=== PATIENT | male | born 1960 | race Caucasian/White ===

== ENCOUNTER 2017-06-26 06:46 | Inpatient (IN) | payer OTHER ==
[2017-06-20 13:37] LABS: BASOPHILS % (AUTO) 0.5 % (0.0-2.0); EOSINOPHILS % (AUTO) 5.3 % (1.0-6.0); HEMOGLOBIN 15.7 g/dL (13.5-17.5); LYMPHOCYTES # (AUTO) 1.7 K/uL (1.0-4.8); LYMPHOCYTES % (AUTO) 21.7 % (22.0-44.0); MEAN CORPUSCULAR HEMOGLOBIN 29.5 pg (26.0-34.0); MEAN CORPUSCULAR HGB CONC 34.1 G/dL (31.0-37.0); MEAN CORPUSCULAR VOLUME 86 fL (80-100); MONOCYTES # (AUTO) 0.8 K/uL (0.1-1.0); MONOCYTES % (AUTO) 10.5 % (2.0-9.0); NEUTROPHILS # (AUTO) 4.8 K/uL (1.8-7.7); PLATELET COUNT (AUTO) 273 K/uL (150-450); RED BLOOD CELL COUNT(AUTO) 5.32 MIL/uL (4.50-5.90); RED CELL DISTRIBUTION WIDTH 14.5 % (11.5-14.5); WHITE BLOOD COUNT (AUTO) 7.7 K/uL (4.5-11.0)
[2017-06-20 13:41] LABS: ANION GAP 10 mmol/L (8-16); CARBON DIOXIDE 27 mmol/L (22-29); CHLORIDE 105 mmol/L (98-107); CREATININE 1.19 mg/dL (0.60-1.30); GLOMERULAR FILTR. RATE CALC > 60 mL/min (>60); POTASSIUM 4.5 mmol/L (3.5-5.1); SODIUM SERUM 142 mmol/L (136-145); UREA NITROGEN, BLOOD 13 mg/dL (7-18)
[2017-06-20 13:48] LABS: ALANINE AMINOTRANSFERASE 45 U/L (12-78); ALBUMIN 3.5 g/dL (3.4-5.0); ASPARTATE AMINOTRANSFERASE 16 U/L (15-37); BILIRUBIN,TOTAL 0.4 mg/dL (0.1-1.0); TOTAL PROTEIN, SERUM 6.9 g/dL (6.4-8.2)
[~2017-06-26 06:46] MED LIST: AMLO-512 PO; ATOR40TA28 PO; CHOL4PAC8 PO; CeFAZolin 2 GM/DEXTROSE 50 ML IV ONE; FISH1CAP27 PO; HYDR-309 PO; LORA1TAB3 PO; MELO-273 PO; OMEP20 PO; RINGERS SOLUTION,LACTATED 1,000 ML IV ONE
[2017-06-26] MEDS ORDERED: RINGERS SOLUTION,LACTATED 1,000 ML IV ONE (07:07)
[2017-06-26] MEDS ORDERED: CeFAZolin 2 GM/DEXTROSE 50 ML IV ONE (07:38)
[2017-06-26] MEDS ORDERED: KETAMINE HCL 50 MG/ML 10 ML VIAL ONE (10:17)
[2017-06-26] MEDS ORDERED: PROPOFOL 1000 MG/ISO-OSM 100 ML IV ONE (10:17)
[2017-06-26] MEDS ORDERED: MINERAL OIL/PETROLATUM,WHITE PF 3.5 GM OPHTHALMIC OINTMENT ONE (10:19)
[2017-06-26] MEDS ORDERED: GLYCOPYRROLATE 0.2 MG/ML VIAL IM ONE (12:00)
[2017-06-26] MEDS ORDERED: EPHEDrine SULFATE 50 MG/ML VIAL IM ONE (12:00)
[2017-06-26] MEDS ORDERED: ROCURONIUM BROMIDE 10 MG/ML 5 ML VIAL IVP ONE (12:00)
[2017-06-26] MEDS ORDERED: DEXAMETHASONE SOD PHOS 4 MG/ML VIAL IVP ONE (12:00)
[2017-06-26] MEDS ORDERED: METOCLOPRAMIDE HCL 5 MG/ML 2 ML VIAL IVP ONE (12:00)
[2017-06-26] MEDS ORDERED: LIDOCAINE HCL/PF 2% 5 ML VIAL INJ ONE (12:00)
[2017-06-26] MEDS ORDERED: PROPOFOL 1% ISO-OSM 1000 MG/100 ML BOTTLE IV ONE (12:00)
[2017-06-26] MEDS ORDERED: ALBUTEROL SULFATE HFA 90 MCG/PUFF 8 GM INHALER IH ONE (12:00)
[2017-06-26] MEDS ORDERED: SUCCINYLCHOLINE CHLORIDE 20 MG/ML 10 ML VIAL IVP ONE (12:00)
[2017-06-26] MEDS ORDERED: FentaNYL CITRATE-PF 250 MCG/5 ML VIAL IVP ONE (12:00)
[2017-06-26] MEDS ORDERED: ONDANSETRON HCL 4 MG/2 ML VIAL IVP ONE (12:00)
[2017-06-26] MEDS ORDERED: NEOSTIGMINE METHYLSULFATE 1 MG/ML 10 ML VIAL IVP ONE (12:00)
[2017-06-26] MEDS ORDERED: PROPOFOL 1% 20 ML VIAL IVP ONE (12:00)
[2017-06-26] MEDS ORDERED: GUM MASTIC/STORAX/MSAL/ALCOHOL LIQUID 0.67 ML VIAL TP ONE (12:14)
[2017-06-26] MEDS ORDERED: BENZOCAINE/MENTHOL LOZENGE [8 LOZENGES/PACKET] PO PRN (13:00)
[2017-06-26] MEDS ORDERED: ZOLPIDEM TARTRATE 10 MG TABLET PO PRN ×2 (13:00→13:30)
[2017-06-26] MEDS ORDERED: HYDROmorphone 2 MG/ML SYRINGE IVP PRN (13:15)
[2017-06-26] MEDS ORDERED: MEPERIDINE-PF 25 MG/ML SYRINGE IVP PRN (13:15)
[2017-06-26] MEDS ORDERED: FentaNYL CITRATE-PF 100 MCG/2 ML VIAL IVP PRN (13:15)
[2017-06-26] MEDS: ACETAMINOPHEN 1000 MG/ISO-OSM 100 ML IV SCH ×2 (13:34→21:27)
[2017-06-26 14:05] VITALS: BP 150/94
[2017-06-26] MEDS: HYDROmorphone 2 MG/ML SYRINGE IVP PRN ×2 (14:09→16:39)
[2017-06-26] MEDS: CYCLOBENZAPRINE HCL 10 MG TABLET PO SCH ×2 (15:24→21:17)
[2017-06-26 16:34] VITALS: BP 142/87
[2017-06-26] MEDS: OXYGEN THERAPY IH SCH ×2 (16:44→20:00)
[2017-06-26 16:45] VITALS: BP 146/98
[2017-06-26] MEDS: CeFAZolin 1 GM/DEXTROSE 50 ML IV SCH (18:06)
[2017-06-26] MEDS ORDERED: ONDANSETRON HCL 4 MG/2 ML VIAL IVP PRN (18:15)
[2017-06-26] MEDS ORDERED: PROMETHAZINE HCL 25 MG/ML VIAL IM PRN (18:15)
[2017-06-26 20:26] VITALS: BP 144/95
[2017-06-26] MEDS: DOCUSATE SODIUM 100 MG CAPSULE PO SCH (21:17)
[2017-06-27] VITALS (7 sets, daily range): BP systolic 131–143; BP diastolic 80–89
[2017-06-27] MEDS: HYDROmorphone 2 MG/ML SYRINGE IVP PRN ×5 (00:06→19:38)
[2017-06-27] MEDS: CeFAZolin 1 GM/DEXTROSE 50 ML IV SCH (02:48)
[2017-06-27] MEDS: ACETAMINOPHEN 1000 MG/ISO-OSM 100 ML IV SCH ×2 (05:28→14:08)
[2017-06-27] MEDS: DOCUSATE SODIUM 100 MG CAPSULE PO SCH ×2 (08:14→20:24)
[2017-06-27] MEDS: CYCLOBENZAPRINE HCL 10 MG TABLET PO SCH ×2 (08:14→20:24)
[2017-06-27] MEDS ORDERED: *CLINICAL-RX DOSING [ENTER DRUG IN COMMENTS] CLINICAL ONE (18:30)
[2017-06-27] MEDS: OXYGEN THERAPY IH SCH (20:00)
[2017-06-27] MEDS ORDERED: MethylPREDNISolone SOD SUCC 125 MG/2 ML VIAL IVP SCH (20:30)
[2017-06-28] MEDS: OxyCODONE HCL/ACETAMINOPHEN 5-325 MG TABLET PO PRN ×3 (01:11→09:28)
[2017-06-28] MEDS: MethylPREDNISolone SOD SUCC 125 MG/2 ML VIAL IVP SCH ×2 (01:12→05:54)
[2017-06-28 01:24] VITALS: BP 153/87
[2017-06-28 05:13] VITALS: BP 155/103
[2017-06-28] MEDS: CYCLOBENZAPRINE HCL 10 MG TABLET PO SCH (08:10)
[2017-06-28] MEDS: DOCUSATE SODIUM 100 MG CAPSULE PO SCH (08:10)
[2017-06-28 09:04] VITALS: BP 150/97
[2017-06-28 11:27] VITALS: BP 137/100
[2017-06-28] MEDS ORDERED: MethylPREDNISolone SOD SUCC 125 MG/2 ML VIAL IVP SCH (18:30)
== END 2017-06-28 12:05 | disposition home or self-care (01) | DRG 473 ==
LOC: 4E 06:46 → OBSVTOIN 06:46 → 4E 09:00
PROVIDERS: ADMIT Orthopaedic Surgery Orthopaedic Surgery of the Spine; ATTEND Orthopaedic Surgery Orthopaedic Surgery of the Spine
PROC: 0RG20A0 Fusion of 2 or more Cervical Vertebral Joints with Interbody Fusion Device, Anterior Approach, Anterior Column, Open Approach (ICD-10-PCS; 2017-06-26)
PROC: 4A11X4G Monitoring of Peripheral Nervous Electrical Activity, Intraoperative, External Approach (ICD-10-PCS; 2017-06-26)
PROC: 0RT30ZZ Resection of Cervical Vertebral Disc, Open Approach (ICD-10-PCS; principal; 2017-06-26 11:19)
DX: M48.02 Spinal stenosis, cervical region (principal)
CPT/HCPCS: 87081; 93005; 97116; 97161; 97165; 97530; C1713; J0131; J0330; J0690; J1100; J1170; J2405; J2550; J2704; J2765; J2930; J3010; J3490; J3535; J7120